=== PATIENT | male | born 1975 | race Caucasian/White ===

== ENCOUNTER 2020-08-14 03:59 | Emergency (ER) | payer OTHER ==
[~2020-08-14] VITALS: Ht 172.7 cm; Wt 77.1 kg
[2020-08-14] MEDS ORDERED: BLOOD PRESSURE (04:11)
[2020-08-14] MEDS ORDERED: BLOOD THINNER (04:12)
[2020-08-14] MEDS ORDERED: Cleocin HCl300 MG PO (04:45)
== END 2020-08-14 04:53 | disposition home or self-care (01) ==
LOC: ER 03:59
DX: L03.114 Cellulitis of left upper limb (principal); L03.113 Cellulitis of right upper limb; Z88.0 Allergy status to penicillin
CPT/HCPCS: 99282; A9270